=== PATIENT | male | born 1965 | race Caucasian/White ===

== ENCOUNTER 2018-05-21 08:58 | Emergency (ER) | END 2018-05-21 12:58 | disposition home or self-care (01) ==

== ENCOUNTER 2019-05-20 13:00 | Emergency (ER) | payer BC, OTHER ==
[~2019-05-20] VITALS: Ht 177.8 cm; Wt 94.8 kg
[~2019-05-20 13:00] MED LIST: HYDR-3980 PO; HYDR-4011 PO; IBUP-1542 PO; IBUP800T48 PO; TAMS-14 PO
[2019-05-20 13:15] VITALS: Ht 177.8 cm; Wt 94.8 kg
[2019-05-20] MEDS ORDERED: HYDROCODONE/APAP (5/325) TAB PO ONE (14:00)
--- NOTE | 2019-05-20 15:18 | ERD ---
ER Documentation Chief Complaint Chief Complaint fell off ladder 4 to 6 fell. back pain; no head injury HPI Patient is a 53-year-old male who fell from a ladder approximately 6 feet high onto his lower back. He denies pain in his lower back. Denies any head injury, neck pain or KO. He is able to ambulate. No nausea or vomiting. No abdominal pain. ROS All systems reviewed and are negative except as per history of present illness. Medications Home Meds Active Scripts Ibuprofen* (Motrin*) 800 Mg Tab, 800 MG PO Q6, #30 TAB Prov:JEWEL TOLEDO PA-C 05/20/19 Hydrocodone/Acetaminophen ([place] 5-325 Tablet) 1 Each Tablet, 1 TAB PO Q6H PRN for PAIN, #7 TAB Prov:JEWEL TOLEDO PA-C 05/20/19 Ibuprofen* (Motrin*) 600 Mg Tab, 600 MG PO Q6, #30 TAB Prov:JEWEL TOLEDO PA-C 05/20/19 Ibuprofen* (Motrin*) 800 Mg Tab, 800 MG PO Q6H PRN for PAIN, #30 TAB Prov:JOSEPH REGAN. DO 05/21/18 Tamsulosin Hcl* (Flomax*) 0.4 Mg Cap.er.24h, 0.4 MG PO BID, #30 CAP Prov:DORENE REGANSTOLOS Micheline. DO 05/21/18 Hydrocodone/Acetaminophen ([place] 10-325 Tablet) 1 Each Tablet, 1 TAB PO Q6H PRN for PAIN, #20 TAB Prov:DORENE REGANSTOLOS Micheline. DO 05/21/18 Allergies Allergies: Coded Allergies: No Known Allergy (Unverified , 05/20/19) PMhx/Soc Medical and Surgical Hx: pt denies Surgical Hx History of Surgery: No Anesthesia Reaction: No Hx Neurological Disorder: No Hx Respiratory Disorders: No Hx Cardiac Disorders: No Hx Psychiatric Problems: No Hx Miscellaneous Medical Probl: Yes (kidney stones) Hx Alcohol Use: Yes (SOMETIMES) Hx Substance Use: No Hx Tobacco Use: No FmHx Family History: No diabetes Physical Exam Vitals Physical Exam INITIAL VITAL SIGNS: Reviewed by me GENERAL: Awake, alert and oriented x 4, well appearing, nontoxic, speaking in full sentences. No acute distress HEAD: Atraumatic NECK: Supple. No masses. Full range of motion. No meningismus. No midline tenderness. EYES: EOMI. PERRL. EAR: No tenderness over the mastoids bilaterally. No exudates in the canals. TMs nonerythematous. NOSE: Normal nose. THROAT: No tonilar erythema or edema. No exudates. Uvula midline. No kissing tonsils. RESPIRATORY: Clear to auscultation bilaterally. Symmetric chest wall rise. No wheezing or rales. No accessory muscle use. CV: Regular rate and rhythm. No murmurs, rubs, or gallops. ABDOMEN: Soft, non-distended. Nontender. Negative [place]. Negative McBurneys point tenderness. No CVA tenderness bilaterally. No guarding. No rebound. Back Exam: Skin: No bruising or rash Compartments: Soft Motor: Normal flexion and extension of bilateral hip/knee/ankle/foot Sensation: Intact to light touch throughout Bones: Tender to palpation over L1, no step-offs or bony abnormalities Results 24 hrs Current Medications Medications Dose Sig/Casandra Start Time Status Last (Trade) Ordered Route PRN Stop Time Admin Dose Reason Admin 1 tab ONCE ONCE 05/20/19 DC 05/20/19 Acetaminophen PO 14:00 13:53 / 05/20/19 14:01 Hydrocodone Bitart ([place] (5/325)) Procedures/MDM Patient has back pain after fall from ladder. X-rays of his back show compression fracture at L1. Reviewed this with Dr. Donaldson and we decided to order a CT scan of the back. Fast ultrasound was ordered which was negative. Results of CT is still pending at the end of my shift and this will be passed on to the next provider who will dictate an addendum. Departure Diagnosis: Primary Impression: Compression fracture Condition: Stable JEWEL TOLEDO PA-C May 20, 2019 15:18
[2019-05-20 16:56] VITALS: BP 123/66; PULSE 69; RESP 18
== END 2019-05-20 16:56 | disposition home or self-care (01) ==
LOC: FTE 13:00
DX: S32.010A Wedge compression fracture of first lumbar vertebra, initial encounter for closed fracture (principal); R40.2142 Coma scale, eyes open, spontaneous, at arrival to emergency department; R40.2252 Coma scale, best verbal response, oriented, at arrival to emergency department; R40.2362 Coma scale, best motor response, obeys commands, at arrival to emergency department; W11.XXXA Fall on and from ladder, initial encounter; Y92.9 Unspecified place or not applicable
CPT/HCPCS: 72072; 72100; 72131; 72220; 76705